=== PATIENT | female | born 2000 | race Caucasian/White ===

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

== ENCOUNTER 2019-09-12 15:04 | Emergency (ER) | payer OTHER ==
[2019-09-12 15:22] VITALS: BP 109/60
[2019-09-12] MEDS ORDERED: Ibuprofen TAB* 600 MG PO ONE (15:28)
--- NOTE | 2019-09-12 15:48 | UC ---
Hand/Wrist HPI - HPI Summary HPI Summary: Pt presents with c/o right thumb pain, swelling and bruising that began ~ 1 hour ago after getting right thumb shut in car door. - History Of Current Complaint Chief Complaint: UCUpperExtremity Stated Complaint: RIGHT THUMB INJURY Time Seen by Provider: 09/12/19 15:27 Hx Obtained From: Patient Hx Last Menstrual Period: does not have periods, has a IUD ?: No Onset/Duration: Sudden Onset, Still Present Severity Initially: Moderate Severity Currently: Moderate Pain Intensity: 8 Character Of Pain: Dull, Aching, Throbbing Aggravating Factor(s): Movement Alleviating Factor(s): Rest, Ice Associated Signs And Symptoms: Positive: Swelling, Bruising Related History: Dominant Hand Right - Risk Factors Compartment Syndrome Risk Factors: Pain - Allergies/Home Medications Allergies/Adverse Reactions: Allergies Allergy/AdvReac Type Severity Reaction Status Date / Time sulfamethoxazole Allergy Unknown facial Verified 09/12/19 15:13 [From Bactrim] swelling, bad headache trimethoprim [From Bactrim] Allergy Unknown facial Verified 09/12/19 15:13 swelling, bad headache Home Medications: Home Medications Levonorgestrel (Iud) [Mirena IUD] 0 mcg 09/12/19 [History] Verapamil TAB* [Calan TAB*] 80 mg PO TID 09/12/19 [History Confirmed 09/12/19] PMH/Surg Hx/FS Hx/Imm Hx Previously Healthy: Yes - Surgical History Surgical History: None - Family History Known Family History: Positive: None Negative: Hypertension - Social History Occupation: Student Lives: Dormitory/Roommates Alcohol Use: Occasionally Substance Use Type: None Smoking Status (MU): Light Every Day Tobacco Smoker Type: Cigarettes Amount Used/How Often: 1/2 PPD Have You Smoked in the Last Year: Yes Household Exposure Type: Cigarettes - Immunization History Most Recent Influenza Vaccination: no Vaccination Up to Date: Yes Review of Systems All Other Systems Reviewed And Are Negative: Yes Constitutional: Positive: Negative Skin: Positive: Bruising - right thumb at base of nail, subungal hematoma Eyes: Positive: Negative ENT: Positive: Negative Respiratory: Positive: Negative Cardiovascular: Positive: Negative Gastrointestinal: Positive: Negative Genitourinary: Positive: Negative Motor: Positive: Negative Neurovascular: Positive: Negative Musculoskeletal: Positive: Arthralgia, Myalgia Neurological: Positive: Negative Psychological: Positive: Negative Is Patient Immunocompromised?: No Physical Exam Triage Information Reviewed: Yes Appearance: Well-Appearing Vital Signs: Initial Vital Signs Temp 98.8 F 09/12/19 15:15 Pulse 60 09/12/19 15:15 Resp 16 09/12/19 15:15 BP 109/60 09/12/19 15:15 Pulse Ox 100 09/12/19 15:15 Vital Signs Reviewed: Yes Eye Exam: Normal ENT Exam: Normal Dental Exam: Normal Neck exam: Normal Respiratory: Positive: No respiratory distress Musculoskeletal: Positive: Edema @ - distal right thumb Neurological Exam: Normal Psychological Exam: Normal Skin Exam: Other - subungal heamtoma right thumb Procedures - Nail Trephination Right Thumb Nail Trephination Location: right thumb Method of Drainage: nail cauterized Sterile Dressing Applied: Yes - dressing applied. Finger Splint: No Diagnostics - Radiology No standard instances Radiology Interpretation Completed By: Radiologist - negative for fracture Hand/Wrist Course/Dx - Differential Dx/Diagnosis Differential Diagnosis/HQI/PQRI: Fracture, Subungual Hematoma Provider Diagnosis: Hematoma, subungual, thumb, right Discharge ED - Sign-Out/Discharge Documenting (check all that apply): Patient Departure All imaging exams completed and their final reports reviewed: Yes - Discharge Plan Condition: Stable Disposition: HOME Patient Education Materials: Subungual Hematoma (ED) Referrals: [facility] [facility] [place]] - If Needed No Primary Care Phys,NOPCP [Primary Care Provider] - - Billing Disposition and Condition Condition: STABLE Disposition: Home
== END 2019-09-12 16:43 | disposition home or self-care (01) ==
LOC: UCCORT 15:04
DX: S60.011A Contusion of right thumb without damage to nail, initial encounter (principal); F17.210 Nicotine dependence, cigarettes, uncomplicated; Z88.2 Allergy status to sulfonamides; X58.XXXA Exposure to other specified factors, initial encounter; Y92.9 Unspecified place or not applicable
CPT/HCPCS: 11740; 99212; A9270-GY; G0463

== ENCOUNTER 2020-03-24 00:21 | Inpatient (IN) ==
[2020-03-24 01:26] LABS: Urine Appearance Cloudy; Urine Bilirubin Negative (Negative); Urine Blood Negative (Negative); Urine Color Yellow; Urine Glucose Negative (Negative); Urine Ketones Trace (Negative); Urine Nitrite Negative (Negative); Urine Protein Negative (Negative); Urine Specific Gravity 1.006 (1.010-1.030); Urine Urobilinogen Negative (Negative)
[2020-03-24 01:55] LABS: Urine Benzodiazepine Screen None Detected (None Detect); Urine Opiates Screen None Detected (None Detect)
[2020-03-24 01:57] LABS: ABS Eosinophils 0.1 10^3/ul (0-0.6); ABS Lymphocytes 2.3 10^3/ul (1.0-4.8); ABS Monocytes 0.7 10^3/ul (0-0.8); Hematocrit 38 % (35-47); Hemoglobin 12.8 g/dL (12.0-16.0); Lymphocyte % 30.3 %; Mean Corpuscular HGB Conc 34 g/dL (31-36); Mean Corpuscular Hemoglobin 32 pg (27-31); Mean Corpuscular Volume 96 fL (80-97); Mean Platelet Volume 9.9 fL (7.4-10.4); Platelet Count 237 10^3/uL (150-450); Red Blood Count 3.94 10^6 /uL (3.70-4.87); Red Cell Distribution Width 13 % (10-15); White Blood Count 7.7 10^3/uL (3.5-10.8)
[2020-03-24 02:09] LABS: Albumin 4.9 g/dL (3.2-5.2); Anion Gap 7 mmol/L (2-11); CO2 Carbon Dioxide 25 mmol/L (22-32); Calcium 9.8 mg/dL (8.6-10.3); Chloride 105 mmol/L (101-111); Potassium 3.8 mmol/L (3.5-5.0); Sodium 137 mmol/L (135-145)
[2020-03-24 02:15] LABS: ALT 7 U/L (7-52); AST 14 U/L (13-39); Alkaline Phosphatase 66 U/L (34-104); BUN/Creatinine Ratio 7.9 (8-20); Blood Urea Nitrogen 6 mg/dL (6-24); EGFR African American 117.4 (>60); Globulin 2.5 g/dL (2-4); Glucose 96 mg/dL (70-100); Total Protein 7.4 g/dL (6.4-8.9)
[2020-03-24 02:43] LABS: Acetaminophen < 15 mcg/mL; Alcohol, S < 10 mg/dL (<10); Salicylate < 2.50 mg/dL (<30)
[2020-03-24 02:50] LABS: TSH (Thyroid Stimulating Horm) 1.43 mcIU/mL (0.34-5.60)
[2020-03-24] MEDS ORDERED: Al Hydrox/Mg Hydrox/Simet LIQ 30 ML UDC PO PRN (10:25)
[2020-03-25] MEDS ORDERED: Nicotine GUM 2MG FRUIT FLAVOR PO PRN (11:01)
[2020-03-25 11:29] LABS: HCG Pregnancy < 0.60 mIU/mL
[2020-03-25] MEDS: Nicotine PATCH 14 MG/24 HR PATCH TRANSDERM SCH (14:00)
[2020-03-26 08:25] LABS: HDL Cholesterol 60.6 mg/dL
[2020-03-26] MEDS: Nicotine PATCH 14 MG/24 HR PATCH TRANSDERM SCH (08:34)
[2020-03-27] MEDS: Nicotine PATCH 14 MG/24 HR PATCH TRANSDERM SCH (09:07)
[2020-03-28] MEDS: Nicotine PATCH 14 MG/24 HR PATCH TRANSDERM SCH (12:11)
[2020-03-29] MEDS: Nicotine PATCH 14 MG/24 HR PATCH TRANSDERM SCH (09:09)
[2020-03-30] MEDS: Nicotine PATCH 14 MG/24 HR PATCH TRANSDERM SCH (08:09)
[2020-03-30 09:34] VITALS: BP 103/76
== END 2020-03-30 12:05 | disposition home or self-care (01) | DRG 753 ==
LOC: ED 00:21 → BSU 12:00
PROVIDERS: ADMIT Psychiatry & Neurology Psychiatry; ATTEND Psychiatry & Neurology Psychiatry

== ENCOUNTER 2021-10-12 13:46 | Inpatient (IN) ==
[2021-10-12 15:28] LABS: ABS Basophils 0.1 10^3/ul (0-0.2); ABS Eosinophils 0.1 10^3/ul (0-0.6); ABS Lymphocytes 1.5 10^3/ul (1.0-4.8); ABS Monocytes 0.5 10^3/ul (0-0.8); Eosinophil % 1.3 %; Hematocrit 39 % (35-47); Hemoglobin 13.7 g/dL (12.0-16.0); Lymphocyte % 18.2 %; Mean Corpuscular HGB Conc 35 g/dL (31-36); Mean Corpuscular Hemoglobin 33 pg (27-31); Mean Corpuscular Volume 94 fL (80-97); Mean Platelet Volume 9.2 fL (7.4-10.4); Platelet Count 304 10^3/uL (150-450); Red Blood Count 4.18 10^6 /uL (3.70-4.87); Red Cell Distribution Width 13 % (10-15); White Blood Count 8.2 10^3/uL (3.5-10.8)
[2021-10-12 15:53] LABS: HCG Pregnancy < 0.60 mIU/mL
[2021-10-12 15:55] LABS: ALT 8 U/L (7-52); AST 16 U/L (13-39); Albumin 4.9 g/dL (3.2-5.2); Albumin/Globulin Ratio 1.8 (1-3); Anion Gap 9 mmol/L (2-11); Blood Urea Nitrogen 7 mg/dL (6-24); CO2 Carbon Dioxide 24 mmol/L (22-32); Calcium 9.7 mg/dL (8.6-10.3); Chloride 104 mmol/L (101-111); Globulin 2.8 g/dL (2-4); Glucose 97 mg/dL (70-100); Potassium 4.3 mmol/L (3.5-5.0); Sodium 137 mmol/L (135-145); Total Protein 7.7 g/dL (6.4-8.9); eGFR CKD-EPI 125.3 (>60)
[2021-10-12 16:17] LABS: Urine Appearance Cloudy; Urine Bilirubin Negative (Negative); Urine Blood Negative (Negative); Urine Color Amber; Urine Glucose Negative (Negative); Urine Ketones Trace (Negative); Urine Nitrite Negative (Negative); Urine Protein Negative (Negative); Urine Specific Gravity 1.017 (1.002-1.030); Urine Urobilinogen Negative (Negative)
[2021-10-12 16:19] LABS: Acetaminophen < 15 mcg/mL; Alcohol, S < 13 mg/dL (<13); Salicylate < 2.50 mg/dL (<30)
[2021-10-12 16:22] LABS: Alkaline Phosphatase 63 U/L (35-149)
[2021-10-12 16:27] LABS: Urine Bacteria Absent (Absent); Urine Red Blood Cell 1+(3-5/hpf) (Absent); Urine Squamous Epithelial Cell Present (Absent); Urine White Blood Cell 3+(>20/hpf) (Absent)
[2021-10-12 17:48] LABS: Urine Benzodiazepine Screen None Detected (None Detect); Urine Cannabinoids Screen Presumptive Positive (None Detect); Urine Opiates Screen None Detected (None Detect)
[2021-10-12] MEDS ORDERED: Al Hydrox/Mg Hydrox/Simet LIQ 30 ML UDC PO PRN (22:42)
[2021-10-13] MEDS: Nicotine PATCH 21 MG/24 HR PATCH TRANSDERM SCH (08:51)
[2021-10-13] MEDS: Nicotine GUM 2MG FRUIT FLAVOR PO PRN ×2 (08:51→19:16)
[2021-10-13] MEDS: Vitamin THERAPEUTIC TAB PO SCH (08:51)
[2021-10-14] MEDS ORDERED: Venlafaxine XR 75 mg ONE (08:19)
[2021-10-14] MEDS: Vitamin THERAPEUTIC TAB PO SCH (08:26)
[2021-10-14] MEDS: Nicotine PATCH 21 MG/24 HR PATCH TRANSDERM SCH (08:29)
[2021-10-14] MEDS ORDERED: Venlafaxine XR 75 mg PO SCH (09:00)
[2021-10-14] MEDS ORDERED: Venlafaxine XR 75 mg PO ONE (10:23)
[2021-10-14] MEDS: Nicotine GUM 2MG FRUIT FLAVOR PO PRN ×2 (15:54→18:24)
[2021-10-15] MEDS: Nicotine PATCH 21 MG/24 HR PATCH TRANSDERM SCH (07:37)
[2021-10-15 07:49] LABS: HDL Cholesterol 55.4 mg/dL
[2021-10-15] MEDS: Vitamin THERAPEUTIC TAB PO SCH (08:49)
[2021-10-15] MEDS: Venlafaxine XR 75 mg PO SCH (08:49)
[2021-10-15] MEDS: Nicotine GUM 2MG FRUIT FLAVOR PO PRN ×2 (08:50→18:58)
[2021-10-16] MEDS: Vitamin THERAPEUTIC TAB PO SCH (09:04)
[2021-10-16] MEDS: Venlafaxine XR 75 mg PO SCH (09:04)
[2021-10-16] MEDS: Nicotine PATCH 21 MG/24 HR PATCH TRANSDERM SCH (09:05)
[2021-10-16] MEDS: Nicotine GUM 2MG FRUIT FLAVOR PO PRN (09:05)
[2021-10-17] MEDS: Venlafaxine XR 75 mg PO SCH (08:20)
[2021-10-17] MEDS: Vitamin THERAPEUTIC TAB PO SCH (08:22)
[2021-10-17] MEDS: Nicotine GUM 2MG FRUIT FLAVOR PO PRN (08:22)
[2021-10-17] MEDS: Nicotine PATCH 21 MG/24 HR PATCH TRANSDERM SCH (08:22)
[2021-10-18 08:18] VITALS: BP 102/56
[2021-10-18] MEDS: Venlafaxine XR 75 mg PO SCH (10:03)
[2021-10-18] MEDS: Vitamin THERAPEUTIC TAB PO SCH (10:03)
[2021-10-18] MEDS: Nicotine PATCH 21 MG/24 HR PATCH TRANSDERM SCH (10:04)
== END 2021-10-18 14:47 | disposition home or self-care (01) | DRG 751 ==
LOC: ED 13:46 → BSU 22:34
PROVIDERS: ADMIT Psychiatry & Neurology Psychiatry; ATTEND Psychiatry & Neurology Psychiatry

== ENCOUNTER 2022-07-19 13:18 | Inpatient (IN) ==
[2022-07-19] MEDS ORDERED: Buffered Lidocaine 1% SYRIN 1 ml INTRADERM ONE (16:00)
[2022-07-19] MEDS ORDERED: Lactated Ringers 1000 ml BAG 1,000 ML IV ONE ×2 (16:00→21:08)
[2022-07-19 18:02] LABS: Urine Benzodiazepine Screen None Detected (None Detect); Urine Cannabinoids Screen None Detected (None Detect); Urine Opiates Screen None Detected (None Detect)
[2022-07-19] MEDS: Lactated Ringers 1000 ml BAG 1,000 ML IV SCH ×2 (20:05→21:15)
[2022-07-19] MEDS ORDERED: OBEPIDURAL (200 ML) 200 ML EPIDURAL ONE (20:11)
[2022-07-19] MEDS ORDERED: Lidocaine/Epinephrin 1.5%/200 5 ML AMP INJ ONE (20:11)
[2022-07-19 20:23] LABS: ABS Eosinophils 0.1 10^3/ul (0-0.6); ABS Lymphocytes 2.1 10^3/ul (1.0-4.8); ABS Monocytes 0.8 10^3/ul (0-0.8); ABS Neutrophils 11.5 10^3/ul (1.5-7.7); Eosinophil % 0.9 %; Hematocrit 37 % (35-47); Hemoglobin 12.3 g/dL (12.0-16.0); Lymphocyte % 14.4 %; Mean Corpuscular HGB Conc 33 g/dL (31-36); Mean Corpuscular Hemoglobin 31 pg (27-31); Mean Corpuscular Volume 94 fL (80-97); Mean Platelet Volume 9.4 fL (7.4-10.4); Platelet Count 426 10^3/uL (150-450); Red Blood Count 3.94 10^6 /uL (3.70-4.87); Red Cell Distribution Width 13 % (10-15); White Blood Count 14.5 10^3/uL (3.5-10.8)
[2022-07-19] MEDS ORDERED: Phenylephrine 40 mcg/mL 10mL (400mcg) SYRINGE IV PUSH PRN ×2 (21:08)
[2022-07-19] MEDS ORDERED: Sodium Citrate/Citric Acid LIQ 15 ML UDC PO PRN (21:08)
[2022-07-19] MEDS ORDERED: OBEPIDURAL (200 ML) 200 ML EPIDURAL SCH (22:00)
[2022-07-19] MEDS ORDERED: Lactated Ringers 1000 ml BAG 1,000 ML IV SCH (22:00)
[2022-07-19 23:38] LABS: Urine Appearance Cloudy; Urine Bilirubin Negative (Negative); Urine Blood 3+ (Negative); Urine Color Yellow; Urine Glucose Negative (Negative); Urine Ketones Negative (Negative); Urine Nitrite Negative (Negative); Urine Protein 1+(30 mg/dL) (Negative); Urine Specific Gravity 1.005 (1.002-1.030); Urine Urobilinogen Negative (Negative)
[2022-07-19 23:45] LABS: Urine Bacteria 1+ (Absent); Urine Red Blood Cell 2+(6-10/hpf) (Absent); Urine Squamous Epithelial Cell Present (Absent); Urine White Blood Cell Trace(0-5/hpf) (Absent)
[2022-07-20] MEDS ORDERED: Calcium Carb (TUMS) 500 mg CHEW TAB PO PRN (00:09)
[2022-07-20] MEDS: Lactated Ringers 1000 ml BAG 1,000 ML IV SCH ×2 (01:13→02:17)
[2022-07-20] MEDS ORDERED: Witch Hazel PAD JAR TOPICAL PRN (05:58)
[2022-07-20] MEDS ORDERED: Oxytocin 10 UNITS/ML 1 ML VIAL IM ONE (05:58)
[2022-07-20] MEDS ORDERED: Dibucaine 1% OINT 28.35 GM TUBE PR PRN (05:58)
[2022-07-20] MEDS ORDERED: Lactated Ringers 1000 ml BAG 1,000 ML IV SCH (06:00)
[2022-07-20] MEDS ORDERED: Oxytocin 10 UNITS/ML 1 ML VIAL ONE (17:42)
[2022-07-20] MEDS ORDERED: Lidocaine 1% VIAL 10 MG/ML VIAL ONE (17:43)
[2022-07-21 06:32] LABS: ABS Eosinophils 0.2 10^3/ul (0-0.6); ABS Monocytes 0.7 10^3/ul (0-0.8); ABS Neutrophils 8.7 10^3/ul (1.5-7.7); Eosinophil % 1.6 %; Hematocrit 34 % (35-47); Hemoglobin 11.4 g/dL (12.0-16.0); Mean Corpuscular HGB Conc 34 g/dL (31-36); Mean Corpuscular Hemoglobin 32 pg (27-31); Mean Corpuscular Volume 94 fL (80-97); Mean Platelet Volume 8.9 fL (7.4-10.4); Platelet Count 349 10^3/uL (150-450); Red Blood Count 3.58 10^6 /uL (3.70-4.87); Red Cell Distribution Width 13 % (10-15); White Blood Count 12.6 10^3/uL (3.5-10.8)
[2022-07-21 13:57] VITALS: BP 108/56
== END 2022-07-21 17:07 | disposition home or self-care (01) | DRG 560 ==
LOC: MCHOBOUT 13:18 → MCHOB 15:42
PROVIDERS: ADMIT Midwife; ATTEND Midwife